=== PATIENT | female | born 1980 | race Caucasian/White ===

== ENCOUNTER → 2020-03-23 | Outpatient (CLI) | payer OTHER ==
[~2020-03-23] MED LIST: COLACE100 MG PO; FAMOTIDINE20 MG PO; FERROUS SULFAT325 MG PO; IBUPROFEN600 MG PO; LORTAB 5-325 M1 EACH PO; MIRALAX 119 GR119 GM PO; NATROL 5-HTP50 MG PO; NORCO 5-325 TA1 EACH PO; ONDANSETRON HCL4 MG PO; TORADOL 10 MG T10 MG PO; ULTRAM50 MG PO
== END ==
LOC: RAD 12:00
DX: R20.0 Anesthesia of skin (principal); R20.2 Paresthesia of skin; M79.601 Pain in right arm; M79.602 Pain in left arm; G56.03 Carpal tunnel syndrome, bilateral upper limbs
CPT/HCPCS: 73100

== ENCOUNTER → 2020-04-20 | Outpatient (CLI) | payer OTHER | LOC: HEART 5 08:30 | DX: R07.9 Chest pain, unspecified (principal); R93.1 Abnormal findings on diagnostic imaging of heart and coronary circulation; I07.1 Rheumatic tricuspid insufficiency | CPT/HCPCS: 93306 ==